=== PATIENT | male | born 1935 | race Caucasian/White ===

== ENCOUNTER 2020-12-21 17:23 | Emergency (ER) | payer MEDICARE ==
[2020-12-21 17:35] VITALS: RESP 18; TEMP 97.8
--- NOTE | 2020-12-21 18:17 | ED ---
General Adult HPI - General Chief complaint: Fall Stated complaint: Fall Time Seen by Provider: 12/21/20 17:25 Source: patient, EMS, RN notes reviewed, old records reviewed Mode of arrival: EMS Limitations: no limitations - History of Present Illness Initial comments: This is a 85-year-old male who presents emergency Department patient states she was trying to get out of the wheelchair and get into bed. When his feet slid out from under him and his head grazed the bed frame. Patient states he did not lose consciousness he was not days he does not have a headache he states he doesn't even think that was a marked on his head. Patient has absolute no complaints at this time. Patient denies any neck pain patient denies any numbness weakness. Patient denies chest pain or back pain. Patient denies abdominal pain patient denies any extremity pain. - Related Data Allergies Allergy/AdvReac Type Severity Reaction Status Date / Time No Known Allergies Allergy Verified 12/21/20 17:35 Review of Systems ROS Statement: Those systems with pertinent positive or pertinent negative responses have been documented in the HPI. ROS Other: All systems not noted in ROS Statement are negative. Past Medical History Past Medical History: Coronary Artery Disease (CAD), CVA/TIA, Hypertension Additional Past Medical History / Comment(s): anemia, stenosis of carotid artery, aneurysm of lower legs , weakness, parkinson History of Any Multi-Drug Resistant Organisms: None Reported Past Surgical History: Heart Catheterization With Stent Past Psychological History: No Psychological Hx Reported Smoking Status: Former smoker Past Alcohol Use History: None Reported Past Drug Use History: None Reported General Exam - General Exam Comments Initial Comments: GENERAL: Patient is well-developed and well-nourished. Patient is nontoxic and well- hydrated and is in no acute distress. No signs of any head trauma ENT: Neck is soft and supple. No significant lymphadenopathy is noted. Oropharynx is clear. Moist mucous membranes. Neck has full range of motion without eliciting any pain. EYES: The sclera were anicteric and conjunctiva were pink and moist. Extraocular movements were intact and pupils were equal round and reactive to light. Eyelids were unremarkable. PULMONARY: Unlabored respirations. Good breath sounds bilaterally. No audible rales rhonchi or wheezing was noted. CARDIOVASCULAR: There is a regular rate and rhythm without any murmurs gallops or rubs. ABDOMEN: Soft and nontender with normal bowel sounds. SKIN: Skin is clear with no lesions or rashes and otherwise unremarkable. NEUROLOGIC: Patient is alert and oriented 2. Cranial nerves II through XII are grossly intact. Motor and sensory are also intact. Normal speech, volume and content. Symmetrical smile. MUSCULOSKELETAL: Normal extremities with adequate strength and full range of motion. LYMPHATICS: No significant lymphadenopathy is noted PSYCHIATRIC: Normal psychiatric evaluation. Limitations: no limitations Course Vital Signs 12/21/20 17:24 Temperature 97.8 F Pulse Rate 90 Respiratory 18 Rate Blood Pressure 147/88 O2 Sat by Pulse 98 Oximetry Medical Decision Making - Medical Decision Making CT of the C-spine and brain showed no acute abnormality. I will begin the room to reevaluate the patient and remained asymptomatic. Disposition Clinical Impression: Fall, Scalp contusion Disposition: HOME SELF-CARE Instructions (If sedation given, give patient instructions): Fall Prevention for Older Adults (ED) Is patient prescribed a controlled substance at d/c from ED?: No Referrals: Arslan Carmona MD [Primary Care Provider] - 1-2 days Time of Disposition: 19:08
--- NOTE | 2020-12-21 18:32 | CT ---
EXAMINATION TYPE: CT brain [facility]ier DATE OF EXAM: 12/21/2020 COMPARISON: None HISTORY: Patient slid out of bed, injury, pain. CT DLP: 1267.8 mGycm Automated exposure control for dose reduction was used. TECHNIQUE: CT scan of the head and cervical spine are performed without contrast. FINDINGS: There is no acute intracranial hemorrhage, mass effect, or midline shift identified. The ventricles and sulci are within normal limits in size. The globes are intact and the visualized sin uses are clear. Cervical spine is visualized in its entirety from C1 through upper thoracic levels and demonstrates s atisfactory alignment without evidence of acute fracture or dislocation. Prevertebral soft tissue ap pears within normal limits. The C1-C2 articulation is unremarkable. IMPRESSION: 1. There is no acute fracture or dislocation evident in the cervical spine. 2. No acute intracranial hemorrhage, mass effect, or midline shift is seen.
[2020-12-21 20:17] VITALS: BP 121/100; PULSE 91
== END 2020-12-21 20:34 | disposition home or self-care (01) ==
LOC: EC 17:23
DX: S00.03XA Contusion of scalp, initial encounter (principal); I10 Essential (primary) hypertension; I25.10 Atherosclerotic heart disease of native coronary artery without angina pectoris; Z87.891 Personal history of nicotine dependence; W06.XXXA Fall from bed, initial encounter
CPT/HCPCS: 70450; 72125; 99284